=== PATIENT | female | born 1945 | race Caucasian/White ===

== ENCOUNTER 2025-01-03 08:50 | Inpatient (IN) ==
[2025-01-03] MEDS: DIPH,PERTUSS(ACELL),TET VAC/PF 0.5 ML SYRINGE IM ONE (09:40)
[2025-01-03] MEDS: LIDOCAINE 4% TOP PATCH TOPICAL ONE (09:40)
[2025-01-03] MEDS ORDERED: MAGNESIUM SULFATE 2 GM/50 ML BAG IV PRN (14:14)
[2025-01-03] MEDS ORDERED: POTASSIUM CHLORIDE 40 MEQ in DEXTROSE 5% IN WATER 500 ML IV PRN (14:14)
[2025-01-03] MEDS ORDERED: IPRATROPIUM/ALBUTEROL 3 ML AMPUL.NEB NEB PRN (14:14)
[2025-01-03] MEDS ORDERED: METOCLOPRAMIDE 10 MG/2 ML VIAL IV PRN (14:14)
[2025-01-03] MEDS ORDERED: POTASSIUM CHLORIDE 20 MEQ TABLET PO PRN ×2 (14:14)
[2025-01-03] MEDS ORDERED: SENNOSIDES 1 TABLET PO PRN (14:14)
[2025-01-03] MEDS: LIDOCAINE 4% TOP PATCH TOPICAL SCH (14:23)
[2025-01-03] MEDS: 0.9 % SODIUM CHLORIDE 10 ML SYRINGE IV SCH (14:23)
[2025-01-03] MEDS ORDERED: HYOSCYAMINE SULFATE 0.125 MG TABLET SL PRN (14:59)
[2025-01-03] MEDS: DOCUSATE SODIUM 100 MG CAPSULE PO SCH (20:27)
[2025-01-03] MEDS: MIRTAZAPINE 15 MG TABLET PO SCH (20:28)
[2025-01-03] MEDS: ACETAMINOPHEN 325 MG TABLET PO PRN (22:56)
[2025-01-04 07:04] LABS: ALT/SGPT 20 U/L (<40); AST/SGOT 24 U/L (<32); Albumin 4.1 gm/dL (3.2-5.2); Albumin/Globulin Ratio 1.9 (1.0-2.3); Alkaline Phosphatase 56 U/L (39-117); Anion Gap 9.0 (8.0-16.0); Bilirubin,Direct 0.2 mg/dL (<0.3); Bilirubin,Total 0.6 mg/dL (0.1-1.0); Blood Urea Nitrogen 11 mg/dL (8-23); Calcium 9.0 mg/dL (8.6-10.4); Carbon Dioxide 24 mmol/L (22-30); Chloride 99 mmol/L (96-108); Globulin 2.2 gm/dL (2.2-3.7); Glucose 91 mg/dL (70-105); Phosphorous 2.7 mg/dL (2.5-4.5); Potassium 4.0 mmol/L (3.3-5.1); Sodium 132 mmol/L (133-145); Triglycerides 44 mg/dL (<150); Uric Acid 2.9 mg/dL (2.5-8.0)
[2025-01-04] MEDS: PANTOPRAZOLE 40 MG PACKET PO SCH (08:04)
[2025-01-04] MEDS: SODIUM CHLORIDE 1 GM TABLET PO SCH (09:51)
[2025-01-04] MEDS: HEPARIN 5,000 UNIT/ML VIAL SQ SCH (09:54)
[2025-01-05] MEDS: LABETALOL HCL 20 MG/4 ML VIAL IV PRN (04:40)
[2025-01-05] MEDS: LABETALOL HCL 20 MG/4 ML VIAL IV ONE (05:02)
[2025-01-05] MEDS: ONDANSETRON 4 MG/2 ML VIAL IV PRN (06:22)
[2025-01-05] MEDS ORDERED: ENALAPRILAT 1.25 MG/ML VIAL IV PRN (08:52)
[2025-01-05 10:14] LABS: Anion Gap 14.0 (8.0-16.0); Blood Urea Nitrogen 11 mg/dL (8-23); Calcium 8.5 mg/dL (8.6-10.4); Carbon Dioxide 20 mmol/L (22-30); Chloride 99 mmol/L (96-108); Glucose 97 mg/dL (70-105); Potassium 3.5 mmol/L (3.3-5.1); Sodium 133 mmol/L (133-145)
[2025-01-05] MEDS: POLYETHYLENE GLYCOL 3350 17 GM PACKET PO PRN (11:04)
[2025-01-06 11:14] VITALS: TEMP 97.8; O2SAT 95
== END 2025-01-06 11:00 | DRG 184 ==
LOC: ED 08:50 → MEDSUR 14:03
PROVIDERS: ADMIT Internal Medicine; ATTEND Internal Medicine